=== PATIENT | female | born 1960 | race Caucasian/White ===

== ENCOUNTER → 2024-02-19 09:28 | Outpatient (BNVA) | payer OTHER, SELFPAY | PROVIDERS: Visit Provider Physician Assistant Medical | DX: S39.012A Strain of muscle, fascia and tendon of lower back, initial encounter (principal); S76.311A Strain of muscle, fascia and tendon of the posterior muscle group at thigh level, right thigh, initial encounter; S96.912A Strain of unspecified muscle and tendon at ankle and foot level, left foot, initial encounter; W01.0XXA Fall on same level from slipping, tripping and stumbling without subsequent striking against object, initial encounter | CPT/HCPCS: 99203 ==

== ENCOUNTER → 2024-02-21 09:46 | Outpatient (BNVA) | payer OTHER, SELFPAY | PROVIDERS: Visit Provider Physician Assistant Medical | DX: S39.012A Strain of muscle, fascia and tendon of lower back, initial encounter (principal); S76.311A Strain of muscle, fascia and tendon of the posterior muscle group at thigh level, right thigh, initial encounter; S93.402A Sprain of unspecified ligament of left ankle, initial encounter; W01.0XXA Fall on same level from slipping, tripping and stumbling without subsequent striking against object, initial encounter | CPT/HCPCS: 99213 ==

== ENCOUNTER → 2024-11-07 15:24 | Outpatient (BNVA) | payer OTHER, SELFPAY | PROVIDERS: Visit Provider Physician Assistant | DX: S83.421A Sprain of lateral collateral ligament of right knee, initial encounter (principal); S80.01XA Contusion of right knee, initial encounter; W18.30XA Fall on same level, unspecified, initial encounter | CPT/HCPCS: 99203 ==